=== PATIENT | female | born 1965 | race Caucasian/White ===

== ENCOUNTER → 2019-02-23 | Outpatient (CLI) | payer OTHER ==
--- NOTE | 2019-02-24 09:03 | RAD ---
LUMBAR SPINE 2-3V Clinical Indication: Back pain Comparison: Lumbar spine, 5 views, October 26, 2015. Findings: There is unchanged severe disc space narrowing and endplate sclerosis and vacuum disc phenomenon of L5/S1. The other disc spaces are maintained. There is mild degenerative endplate spurring and sclerosis throughout the lumbar spine. There is no loss of vertebral body height. The alignment is maintained. No acute fracture. Visualized pelvic bones intact. Minimal atherosclerotic calcification of the abdominal aorta. IMPRESSION: Degenerative spondylosis of L5/S1. No significant change from prior study. Electronically signed by: Phani De La Torre MD (02/24/2019 9:00 AM) [id number]
== END | disposition home or self-care (01) ==
LOC: RAD 13:38
PROVIDERS: ATTEND Family Medicine
DX: M47.817 Spondylosis without myelopathy or radiculopathy, lumbosacral region (principal); I70.0 Atherosclerosis of aorta; M48.07 Spinal stenosis, lumbosacral region; G95.89 Other specified diseases of spinal cord
CPT/HCPCS: 72100